=== PATIENT | male | born 1940 | race Caucasian/White ===

== ENCOUNTER 2018-02-10 18:47 | Observation (INO) | payer OTHER ==
[~2018-02-10] VITALS: Ht 170.2 cm; Wt 113.6 kg
[2018-02-10] MEDS ORDERED: KETO200ER PO (19:07)
[2018-02-10] MEDS ORDERED: HYDCHL25 PO (19:07)
[2018-02-10] MEDS ORDERED: Omeprazole20 M1 PO (19:08)
[2018-02-10] MEDS ORDERED: METO50 PO (19:08)
[2018-02-10 19:41] LABS: Hematocrit 43.1 % (37.0-53.0); Hemoglobin 14.5 g/dL (13.5-17.5); Mean Corpuscular HGB Conc 33.6 g/dL (31.5-36.5); Mean Corpuscular Volume 98 fL (80-100); Mean Platelet Volume 9.8 fL (9.1-12.4); Platelet Count 269 K/mm3 (150-400); RDW Coefficient Variation 12.6 % (11.7-14.2); RDW Standard Deviation 45.4 fL (35.1-46.3); White Blood Cell Count 8.37 K/mm3 (4.00-11.30)
[2018-02-10 19:49] LABS: International Normalized Ratio 1.04; Prothrombin Time Results 10.7 Sec (9.7-11.5)
[2018-02-10 19:54] LABS: Magnesium, Blood 2.1 mg/dL (1.6-2.4); Troponin I 0.036 ng/mL (0.000-0.040)
[2018-02-10 19:59] LABS: Anion Gap 9 mmol/L (6-16); Blood Urea Nitrogen 24 mg/dL (8-24); Bun/Creatinine Ratio 22.9 (12.0-20.0); CO2, Blood 26 mmol/L (21-32); Chloride, Blood 105 mmol/L (98-108); Creatinine, Blood 1.05 mg/dL (0.60-1.20); Glomerular Filtration Rate >60 (60-); Glucose, Blood 102 mg/dL (70-99); Potassium, Blood 3.7 mmol/L (3.5-5.5); Sodium, Blood 140 mmol/L (136-145)
[2018-02-10] MEDS ORDERED: DIPH50 (23:39)
[2018-02-11 04:08] LABS: Hematocrit 42.7 % (37.0-53.0); Hemoglobin 14.2 g/dL (13.5-17.5); Mean Corpuscular HGB 32.8 pg (26.0-34.0); Mean Corpuscular HGB Conc 33.3 g/dL (31.5-36.5); Mean Corpuscular Volume 99 fL (80-100); Mean Platelet Volume 9.7 fL (9.1-12.4); Platelet Count 247 K/mm3 (150-400); RDW Coefficient Variation 12.6 % (11.7-14.2); RDW Standard Deviation 46.1 fL (35.1-46.3); Red Blood Cell Count 4.33 M/mm3 (4.30-5.90); White Blood Cell Count 7.82 K/mm3 (4.00-11.30)
[2018-02-11 04:26] LABS: Alanine Aminotransfer (ALT/SGP 22 U/L (12-78); Albumin, Blood 3.3 g/dL (3.4-5.0); Albumin/Globulin Ratio 0.8 (0.8-1.8); Alk Phos 70 U/L (50-136); Anion Gap 9 mmol/L (6-16); Aspartate Aminotrans (AST/SGOT 20 U/L (12-37); Bilirubin, Total 0.5 mg/dL (0.1-1.0); Blood Urea Nitrogen 23 mg/dL (8-24); Bun/Creatinine Ratio 22.5 (12.0-20.0); CO2, Blood 28 mmol/L (21-32); Calcium, Blood 8.5 mg/dL (8.5-10.1); Chloride, Blood 106 mmol/L (98-108); Creatinine, Blood 1.02 mg/dL (0.60-1.20); Glomerular Filtration Rate >60 (60-); Glucose, Blood 97 mg/dL (70-99); Potassium, Blood 3.8 mmol/L (3.5-5.5); Sodium, Blood 143 mmol/L (136-145); Total Protein, Blood 7.3 g/dL (6.4-8.2)
[2018-02-11 04:28] LABS: Troponin I 0.059 ng/mL (0.000-0.040)
[2018-02-11 11:57] LABS: Troponin I 0.063 ng/mL (0.000-0.040)
[2018-02-11 18:04] LABS: Percent Saturation 31.2 % (20.0-50.0)
[2018-02-12] MEDS ORDERED: VITAMIN C500 MG PO (10:09)
[2018-02-12] MEDS ORDERED: CALCITRATE200 MG PO (10:11)
[2018-02-12] MEDS ORDERED: XARELTO20 MG PO (10:12)
== END 2018-02-12 12:43 | disposition home or self-care (01) ==
LOC: ER 18:47 → PCU 18:48
PROVIDERS: Emergency Medicine; Internal Medicine; Internal Medicine Cardiovascular Disease
DX: I48.0 Paroxysmal atrial fibrillation (principal); I10 Essential (primary) hypertension; N40.0 Benign prostatic hyperplasia without lower urinary tract symptoms; M19.90 Unspecified osteoarthritis, unspecified site; E66.9 Obesity, unspecified; Z88.8 Allergy status to other drugs, medicaments and biological substances; Z79.899 Other long term (current) drug therapy; Z88.6 Allergy status to analgesic agent; Z68.39 Body mass index [BMI] 39.0-39.9, adult
CPT/HCPCS: 36415; 71260; 80048; 80053; 82310; 82550; 82728; 83540; 83550; 83735; 83880; 84484; 85027; 85379; 85610; 85730; 93005; 93010; 93306; 96365; 96366; 96372; 96376; 99285-25; G0378; J1650; Q9967

== ENCOUNTER 2021-11-26 05:49 | Day surgery (SDC) | payer OTHER ==
[~2021-11-26] VITALS: Ht 170.2 cm; Wt 111.0 kg
[~2021-11-26 05:49] MED LIST: ACET500 PO; Amiodarone HCl200 MG PO; Aspir 8181 MG PO; CALCITRATE200 MG PO; CALCIUM CITRAT200 MG PO; CELE100 PO; Calcium Ascorb500 MG PO; Colace100 MG PO; DIPH50; FURO20 PO; GABA300 PO; HYDCHL25 PO; Isosorbide Mono30 MG PO; KETO200ER PO; KLOR-CON 1010 ME5 PO; LISI10 PO; MELO7.5 PO; METF500C PO; METO25 PO; METO25ER PO; METO50 PO; Norco 7.5-3251 EACH PO; Omeprazole20 M1 PO; TRAM50 PO; VITAMIN C500 MG PO; XARELTO15 M1 PO; XARELTO20 MG PO
[2021-11-26] MEDS ORDERED: Amiodarone HCl200 MG PO (06:34)
== END 2021-11-26 22:55 | disposition home or self-care (01) ==
LOC: MHTC 05:49
DX: I48.0 Paroxysmal atrial fibrillation (principal); I35.0 Nonrheumatic aortic (valve) stenosis; N40.0 Benign prostatic hyperplasia without lower urinary tract symptoms; I13.0 Hypertensive heart and chronic kidney disease with heart failure and stage 1 through stage 4 chronic kidney disease, or unspecified chronic kidney disease; I50.32 Chronic diastolic (congestive) heart failure; N18.9 Chronic kidney disease, unspecified; I73.9 Peripheral vascular disease, unspecified; E66.9 Obesity, unspecified; I27.20 Pulmonary hypertension, unspecified; Z87.891 Personal history of nicotine dependence; Z68.38 Body mass index [BMI] 38.0-38.9, adult; Z88.5 Allergy status to narcotic agent; Z88.8 Allergy status to other drugs, medicaments and biological substances
CPT/HCPCS: 92960; 93005; 93010; J2704; J7030

== ENCOUNTER 2021-11-28 10:53 | Inpatient (IN) | payer OTHER ==
[~2021-11-28] VITALS: Ht 170.2 cm; Wt 110.1 kg
[2021-11-28 11:38] LABS: BASOPHILS ABSOLUTE AUTO 0.08 K/mm3 (0.00-0.23); BASOPHILS PERCENT AUTO 1 % (0-2); EOSINOPHILS ABSOLUTE AUTO 0.06 K/mm3 (0.00-0.68); EOSINOPHILS PERCENT AUTO 1 % (0-6); Hematocrit 37.2 % (37.0-53.0); Hemoglobin 12.6 g/dL (13.5-17.5); IMMATURE GRAN ABSOLUTE AUTO 0.04 K/mm3 (0.00-0.10); IMMATURE GRAN PERCENT AUTO 0 % (0-1); LYMPHOCYTES ABSOLUTE AUTO 0.99 K/mm3 (0.84-5.20); LYMPHOCYTES PERCENT AUTO 9 % (21-46); MONOCYTES PERCENT AUTO 8 % (4-13); Mean Corpuscular HGB 33.6 pg (26.0-34.0); Mean Corpuscular HGB Conc 33.9 g/dL (31.5-36.5); Mean Corpuscular Volume 99 fL (80-100); Mean Platelet Volume 9.4 fL (9.1-12.4); NEUTROPHILS ABSOLUTE AUTO 9.53 K/mm3 (1.96-9.15); NEUTROPHILS PERCENT AUTO 82 % (41-73); Platelet Count 247 K/mm3 (150-400); RDW Coefficient Variation 12.9 % (11.7-14.2); RDW Standard Deviation 46.7 fL (35.1-46.3); Red Blood Cell Count 3.75 M/mm3 (4.30-5.90)
[2021-11-28 11:57] LABS: Albumin, Blood 3.2 g/dL (3.4-5.0); Albumin/Globulin Ratio 0.8 (0.8-1.8); Bilirubin, Total 1.5 mg/dL (0.1-1.0); Bun/Creatinine Ratio 18.3 (12.0-20.0); Calcium, Blood 8.7 mg/dL (8.5-10.1); Creatinine, Blood 1.2 mg/dL (0.60-1.20); Globulin, Blood 3.9 g/dL (2.2-4.0); Potassium, Blood 4.1 mmol/L (3.5-5.5); Total Protein, Blood 7.1 g/dL (6.4-8.2)
[2021-11-28] MEDS ORDERED: CALCIUM CIT 311 EAC7 PO (12:13)
[2021-11-28] MEDS ORDERED: POTA10T PO (12:13)
[2021-11-28] MEDS ORDERED: FURO20 PO (12:13)
[2021-11-28] MEDS ORDERED: ASCO500 PO (12:14)
[2021-11-28 13:54] LABS: Influenza A, PCR NEGATIVE (NEGATIVE); Influenza B, PCR NEGATIVE (NEGATIVE); Resp Syncytial Virus, PCR NEGATIVE (NEGATIVE); SARS-Cov-2 (COVID-19) PCR, MMC NEGATIVE (NEGATIVE)
--- NOTE | 2021-11-28 16:55 | NUR ---
ER ADMIT- PT ARRIVED TO ROOM 329 VIA GURNEY FROM ED, PT A SBA INTO BED. PT A/OX4. PT DENIES ANY PAIN. PT REPORTS IT FEELS LIKE SOMETHING IS SITTING ON CHEST. PT REPORTS WAS CARDIOVERTED ON FRIDAY WITH DR VILLALOBOS AND HAS BEEN SOB SINCE, IV LASIX GIVEN IN ED. LS CLEAR, ON 2L N/C. HRR. TRACE BLE EDEMA, BRIEN HOSE PLACED AND ELEVATED. SKIN C/D/I. SPOUSE AT BEDSIDE. PT ORIENTED TO ROOM AND CALL SYSTEM. CALL LIGHT IN REACH.
--- NOTE | 2021-11-28 17:41 | NUR ---
PT REPORTS HE HAS BEEN ON XARELTO 15MG FOR 4 YEARS, NOTIFIED DR DENNIS AND DOSE CHANGED FROM 20MG BACK TO HOME DOSE OF 15MG.
--- NOTE | 2021-11-29 04:27 | NUR ---
VALUE STREAM COACH SUMMARY: A&Ox4. PLEASANT AND COOPERATIVE WITH CARE. CALLS APPROPRIATELY. USES BEDSIDE URINAL APPROPRIATELY. EXPIRATORY WHEEZES IN BILAT LUNG BASES. ELEVATING BLEs AND WEARING COMPRESSION STOCKINGS. MAINTAINING SPO2 >90% 2L/min VIA NC. TELE SINUS RHYTHM @ 60bpm; BBB EXPERIENCED EARLIER IN THE SHIFT. NO CONCERNS. NO C/O CP OR DYSPNEA WITHOUT EXERTION. WILL REPORT TO ONCOMING RN.
[2021-11-29 05:25] LABS: Hemoglobin 12.2 g/dL (13.5-17.5); Mean Corpuscular HGB 33.2 pg (26.0-34.0); Mean Corpuscular Volume 101 fL (80-100); Mean Platelet Volume 9.9 fL (9.1-12.4); Platelet Count 225 K/mm3 (150-400); RDW Coefficient Variation 12.9 % (11.7-14.2); RDW Standard Deviation 47.6 fL (35.1-46.3); Red Blood Cell Count 3.68 M/mm3 (4.30-5.90); White Blood Cell Count 10.89 K/mm3 (4.00-11.30)
[2021-11-29 05:39] LABS: Bun/Creatinine Ratio 18.5 (12.0-20.0); Creatinine, Blood 1.3 mg/dL (0.60-1.20); Potassium, Blood 3.7 mmol/L (3.5-5.5)
--- NOTE | 2021-11-29 17:20 | NUR ---
SHIFT SUMMARY- PT SBA. PT REPORTS LESS CRACKLES BREATHING, EVAL NOTES CRACKLES AND LOWER BASE OF L LUNG, UPPER CLEAR. A&O X4. FAMILY AT BEDSIDE. LOWER EXTREM. EDEMA BILAT +1. PT VSS. NO DIZZINEES REPORTED. APPETITE GOOD. CALL LIGHT IN REACH.
[2021-11-30 05:09] LABS: Hematocrit 36.2 % (37.0-53.0); Hemoglobin 12.4 g/dL (13.5-17.5); Mean Corpuscular HGB 33.6 pg (26.0-34.0); Mean Corpuscular HGB Conc 34.3 g/dL (31.5-36.5); Mean Corpuscular Volume 98 fL (80-100); Mean Platelet Volume 9.7 fL (9.1-12.4); Platelet Count 222 K/mm3 (150-400); RDW Coefficient Variation 12.4 % (11.7-14.2); Red Blood Cell Count 3.69 M/mm3 (4.30-5.90); White Blood Cell Count 10.42 K/mm3 (4.00-11.30)
[2021-11-30 05:41] LABS: Albumin/Globulin Ratio 0.7 (0.8-1.8); Bilirubin, Total 1.3 mg/dL (0.1-1.0); Bun/Creatinine Ratio 21.5 (12.0-20.0); Calcium, Blood 8.1 mg/dL (8.5-10.1); Creatinine, Blood 1.3 mg/dL (0.60-1.20); Globulin, Blood 4.1 g/dL (2.2-4.0); Magnesium, Blood 2.3 mg/dL (1.6-2.4); Potassium, Blood 3.7 mmol/L (3.5-5.5); Total Protein, Blood 7.1 g/dL (6.4-8.2)
--- NOTE | 2021-11-30 05:58 | NUR ---
FIELD OPERATIONS COORDINATOR SUMMARY: A&Ox4. PLEASANT AND COOPERATIVE WITH CARE. VSS WITH SINGLE EPISODE OF DBP OF 46 CONSISTENT WITH DIASTOLIC HF Dx. SBA FOR AMBULATING AND TOILETING OR WILL USE BEDSIDE URINAL. NO C/O PAIN OR DISCOMFORT. TELE REPORT SINUS KODY AT 54bpm WITH PACs. NO ACUTE EVENTS T/O THE NIGHT. WILL REPORT TO ONCOMING RN.
[2021-11-30] MEDS ORDERED: SPIR25 PO (10:50)
--- NOTE | 2021-11-30 11:44 | NUR ---
PATIENT DECLINED TO WAIT FOR OXYGEN TO BE DELIVERED TO THE HOSPITAL PRIOR TO DISCHARGE. THE PATIENT HAS BEEN DISCHARGED HOME WITH HIS .
== END 2021-11-30 11:43 | disposition home or self-care (01) | DRG 291 ==
LOC: ER 10:53 → MEDS 10:54
PROVIDERS: Internal Medicine; Nurse Practitioner Acute Care; Physician Assistant; ADMIT Internal Medicine
DX: I13.0 Hypertensive heart and chronic kidney disease with heart failure and stage 1 through stage 4 chronic kidney disease, or unspecified chronic kidney disease (principal); I50.33 Acute on chronic diastolic (congestive) heart failure; Z20.822 Contact with and (suspected) exposure to COVID-19; I48.91 Unspecified atrial fibrillation; I35.0 Nonrheumatic aortic (valve) stenosis; G89.29 Other chronic pain; N40.0 Benign prostatic hyperplasia without lower urinary tract symptoms; N18.30 Chronic kidney disease, stage 3 unspecified; E66.9 Obesity, unspecified; E78.5 Hyperlipidemia, unspecified; K21.9 Gastro-esophageal reflux disease without esophagitis; Z96.611 Presence of right artificial shoulder joint; Z96.653 Presence of artificial knee joint, bilateral; Z68.37 Body mass index [BMI] 37.0-37.9, adult; Z90.49 Acquired absence of other specified parts of digestive tract; Z90.89 Acquired absence of other organs; Z98.890 Other specified postprocedural states; Z87.891 Personal history of nicotine dependence; Z88.6 Allergy status to analgesic agent; Z88.8 Allergy status to other drugs, medicaments and biological substances; Z79.01 Long term (current) use of anticoagulants; Z79.899 Other long term (current) drug therapy
CPT/HCPCS: 0241U; 36415; 71045; 80048; 80053; 83735; 83880; 84145; 84484; 85025; 85027; 93005; 93010; 94761; 96374; 96376; 99285-25; A9270; G0378; J1940

== ENCOUNTER 2022-01-21 10:31 | Inpatient (IN) | payer OTHER ==
[~2022-01-21] VITALS: Ht 170.2 cm; Wt 109.4 kg
[~2022-01-21 10:31] MED LIST changes: +ASCO500 PO; +CALCIUM CIT 311 EAC7 PO; +POTA10T PO; +SPIR25 PO
[2022-01-21 11:23] LABS: BASOPHILS ABSOLUTE AUTO 0.09 K/mm3 (0.00-0.23); BASOPHILS PERCENT AUTO 1 % (0-2); EOSINOPHILS ABSOLUTE AUTO 0.17 K/mm3 (0.00-0.68); EOSINOPHILS PERCENT AUTO 2 % (0-6); Hematocrit 39.5 % (37.0-53.0); Hemoglobin 13.2 g/dL (13.5-17.5); IMMATURE GRAN ABSOLUTE AUTO 0.03 K/mm3 (0.00-0.10); IMMATURE GRAN PERCENT AUTO 0 % (0-1); LYMPHOCYTES ABSOLUTE AUTO 1.64 K/mm3 (0.84-5.20); LYMPHOCYTES PERCENT AUTO 19 % (21-46); MONOCYTES PERCENT AUTO 9 % (4-13); Mean Corpuscular HGB 33.1 pg (26.0-34.0); Mean Corpuscular HGB Conc 33.4 g/dL (31.5-36.5); Mean Corpuscular Volume 99 fL (80-100); Mean Platelet Volume 9.6 fL (9.1-12.4); NEUTROPHILS ABSOLUTE AUTO 5.92 K/mm3 (1.96-9.15); NEUTROPHILS PERCENT AUTO 69 % (41-73); Platelet Count 269 K/mm3 (150-400); RDW Coefficient Variation 13.2 % (11.7-14.2); RDW Standard Deviation 48.2 fL (35.1-46.3); Red Blood Cell Count 3.99 M/mm3 (4.30-5.90); White Blood Cell Count 8.65 K/mm3 (4.00-11.30)
[2022-01-21 11:43] LABS: Albumin, Blood 3.3 g/dL (3.4-5.0); Albumin/Globulin Ratio 0.8 (0.8-1.8); Bilirubin, Total 0.6 mg/dL (0.1-1.0); Bun/Creatinine Ratio 23.4 (12.0-20.0); Calcium, Blood 8.8 mg/dL (8.5-10.1); Creatinine, Blood 1.07 mg/dL (0.60-1.20); Magnesium, Blood 2.2 mg/dL (1.6-2.4); Potassium, Blood 4.2 mmol/L (3.5-5.5); Total Protein, Blood 7.3 g/dL (6.4-8.2)
[2022-01-21] MEDS ORDERED: METO25ER PO (14:11)
[2022-01-21] MEDS ORDERED: CELE100 PO (17:21)
[2022-01-21] MEDS ORDERED: POTA10T PO (17:29)
[2022-01-21] MEDS ORDERED: ISOSORBIDE MONO30 MG PO (17:29)
[2022-01-21] MEDS ORDERED: METO25 PO (17:30)
[2022-01-21] MEDS ORDERED: TRAM50 PO (17:31)
[2022-01-21] MEDS ORDERED: ASCO500 PO (17:31)
[2022-01-21] MEDS ORDERED: CALCIUM CIT 311 EAC7 PO (17:31)
[2022-01-21] MEDS ORDERED: MELO7.5 PO (17:32)
[2022-01-21] MEDS ORDERED: Prinivil10 MG PO (17:33)
[2022-01-21] MEDS ORDERED: APAP500 MG PO (17:34)
[2022-01-21] MEDS ORDERED: Aspir 8181 MG PO (17:34)
[2022-01-21] MEDS ORDERED: Neurontin 300300 MG PO (17:34)
[2022-01-21] MEDS ORDERED: Norco 7.5-3251 EACH PO (17:34)
--- NOTE | 2022-01-21 18:50 | NUR ---
PT ADMITTED TO ICU FROM ER AT 1840. FOR AFIB RVR. PT ARRIVED AWAKE AND ALERT W/O COMPLAINTS. PT ABLE TO TRANSFER FROM [facility] TO BED, SBA. SOME SOB NOTED W EXERTION, PT STATES THIS IS NORMAL. PT DENIES C/O CHEST PAIN/PRESSURE. CARDIZEM INFUSING AT 5MG/HR. BP SLIGHLY HTN. HEART RATE 70-80'S AFIB.
--- NOTE | 2022-01-22 06:13 | NUR ---
DILT GTT TURNED OFF AT 2200. PATIENT REMAINS IN AFIB BUT RATE CONTROLLED. PATIENT REPORTS DYSPNEA ON EXERTION BUT STATES THAT THIS IS BASELINE FOR HIM. ON ROOM AIR. BP STABLE.
--- NOTE | 2022-01-22 09:49 | NUR ---
CARE OF PT ASSUMED AT 0700. PT AWAKE AND ALERT THIS AM, DENIES ALL COMPLAINTS, DENIES CHEST PAIN/PRESSURE/DIZZINESS. ABLE TO SIT AT SIDE OF BED TO EAT BREAKFAST. HEART RATE 90'S, BRIEFLY INCREASED 110-120 WITH ACTIVITY AND THEN LOWERED AGAIN TO 90, PT IN AFIB. CARDIZEM GTT REMAINS OFF.
--- NOTE | 2022-01-22 12:17 | NUR ---
DR FRANCES IN TO SEE PT. UPDATE GIVEN. ADDITIONAL DOSE OF TOPROL XL ORDERED. PT NOW MED W TELE STATUS.
--- NOTE | 2022-01-22 13:04 | NUR ---
HEART RATE BRIEFLY RAISED TO 150 AND THEN BACK DOWN TO 100-110. PT SITTING IN CHAIR WATCHING TV W , DENIED C/O SYMPTOMS ALONG WITH FAST HR.
[2022-01-22] MEDS ORDERED: FURO20 PO (13:25)
[2022-01-22] MEDS ORDERED: XARELTO20 MG PO (13:26)
--- NOTE | 2022-01-22 14:47 | NUR ---
AROUND 1400 PT HEART INCREASED WITH RATE 130-160. DR HOPSON CALLED. LOPRESSOR 5MG ORDERED AND GIVEN; BP STABLE. HEART RATE HAS SLOWED TO 120-130'S, BP 113/73. ORDERS FOR DISCHARGE HAD BEEN ENTERED, THAT IS ON HOLD FOR NOW.
--- NOTE | 2022-01-22 16:44 | NUR ---
HEART RATE SUSTAINED AT 130-140 AFTER LOPRESSOR. EKG TAKEN RATE MORE REGULAR/STEADY. SHOWS SVT; DR FRANCES CALLED AND NOTIFIED, AT BEDSIDE SHORTLY AFTER TO SEE PT. PT ASYMPTOMAIC, DR FRANCES TO PLACE NEW ORDERS.
--- NOTE | 2022-01-22 17:44 | NUR ---
AMIO STARTED AT 1MG/MIN X6HRS. PT UP IN CHAIR, FISNISHED, DINNER, DENIES COMPLAINTS, WATCHING TV. BP REMAINS STABLE.
--- NOTE | 2022-01-23 05:09 | NUR ---
Assumed care of pt at 190. A/Ox4 and cooperative with care. Denies any pain, CP/pressure. Maintains over 92% on RA, BANUELOS noted and patient states is chronic for him. LS clear on top and dim at bases. Afib at beginning of shift 105-115's but up to 140's with activity. Around 2044 patient converted to Aflutter in 90's. At 419 patient converted into sinus zackery 40's-50's, asymptomatic. Amio gtt changed to half rate this shift. Will report to blake AZEVEDO.
--- NOTE | 2022-01-23 12:11 | NUR ---
CARE NOTE CALL PLACED BY THIS RN TO NOTIFY DR. HOPSON THAT PT IS STILL HAVING PAUSES. AMIODARONE DRIP STILL HAS APPROX. 5 HOURS OF INFUSION BEFORE LOADING DOSE COMPLETE. FROM 1032 TO 1205 PT HAS HAD A TOTAL OF 5 PAUSES RANGING FROM 2.5 SECONDS TO 2.6 SECONDS PER SPEECH LANGUAGE SPECIALIST. CALL WAS PLACED TO DR. HOPSON APPROX. 1208. BP STABLE, HR RANGING FROM 55-60'S. WILL CONTINUE TO MONITOR. PT NOW IN CHAIR EATING LUNCH. IS AT BEDSIDE.
--- NOTE | 2022-01-23 13:50 | NUR ---
CARE NOTE CALL PLACED TO DR. HOPSON TO NOTIFY REGARDING 3.5 SEC PAUSE THAT OCCURRED AT APPROX. 1335. PT IS ASYMPTOMATIC, BP AND HR STABLE. WILL CONTINUE TO MONITOR. PT NOW IN CHAIR, AT BEDSIDE.
--- NOTE | 2022-01-23 15:06 | NUR ---
CARE NOTE AMIODARONE DRIP DISCONTINUED AT 1505 PER EMAR ORDERS.
--- NOTE | 2022-01-23 17:55 | NUR ---
SHIFT SUMMARY PT IS ALERT AND ORIENTED X 4, HE IS PLEASANT AND COOPERATIVE W/ CARE AND ABLE TO MAKE HIS NEEDS KNOWN. BP STABLE, SPO2 MAINTAINED >95% VIA ROOM AIR. HR HAS BEEN SR/SB 53-60'S PER TELE MONITORING. SEE PREVIOUS NOTE REGARDING PAUSES, MADE AWARE OF PAUSES. AMIODARONE WAS D/C'D PER EMAR ORDERS DUE TO PAUSES. PT HAS CONTINUED TO DENY FEELINGS OF CHEST PAIN/PRESSURE, HE HAS DENIED FEELING LIGHTHEADED/DIZZY. HE REPORTED FEELING SOB WHICH IS HIS BASELINE. NO COUGH NOTED, NO NAUSEA/ABD PAIN. HE HAS BEEN IN RECLINER CHAIR FOR MAJORITY OF SHIFT AND HIS HAS BEEN AT BEDSIDE. HR CONTINUES TO REMAIN SB 55 AFTER AMIODARONE D/C'D AND PER FORMS EXAMINER, PT HAS ONLY HAD 1 EPISODE OF PAUSE SINCE AMIODARONE DRIP STOPPED/DC'D. HE HAS AMBULATED A SBA TO BATHROOM. PT NOW VISITING W/ FAMILY FINISHING DINNER, WILL CONTINUE TO MONITOR UNTIL REPORT GIVEN. CALL LIGHT IN REACH.
--- NOTE | 2022-01-24 05:39 | NUR ---
SHIFT SUMMARY PT IS A&OX4, CALLS APPROPRIATELY, MOVES IND IN BED, AND HAS BEEN SLEEPING T/O THE NIGHT. HE DENIES SOB BUT STATED HE WAS HAVING 1/10 CHRONIC ANGINA. AN HOUR LATER HE WAS REASSESSED AND HE STATED IT WENT AWAY. HE HAS BEEN SB 50'S-60'S T/O THE NIGHT, SP02 >90% RA, AND HAS NO OTHER COMPLAINTS. BED IN LOW AND CALL LIGHT IN REACH. WILL CONTINUE TO MONITOR UNTIL SHIFT REPORT IS GIVEN TO THE ONCOMING SHIFT RN. SEE NOTES FOR ANY UPDATES.
--- NOTE | 2022-01-24 10:43 | NUR ---
DISCHARGE SUMMARY PT WAS TRANSPORTED BY WHEELCHAIR TO PERSONAL VEHICLE. ALL PERSONAL BELONGINGS AND DISCHARGE INSTRUCTIONS WERE IN THE PT'S POSSESSION AT THE TIME OF TRANSPORT. ALL QUESTIONS AND CONCERNS WERE ADDRESSED PRIOR TO TRANSPORT. PT VERBALIZED AN UNDERSTANDING OF DISCHARGE INSTRUCTIONS.
== END 2022-01-24 10:34 | disposition home or self-care (01) | DRG 309 ==
LOC: ER 10:31 → PCU 12:35 → ICUW 12:35 → ERHOLD 12:35 → ICUW 18:47 → PCU 01-22 17:58
PROVIDERS: Student in an Organized Health Care Education/Training Program; ADMIT Internal Medicine
DX: I48.91 Unspecified atrial fibrillation (principal); I13.0 Hypertensive heart and chronic kidney disease with heart failure and stage 1 through stage 4 chronic kidney disease, or unspecified chronic kidney disease; I50.32 Chronic diastolic (congestive) heart failure; I35.0 Nonrheumatic aortic (valve) stenosis; N40.0 Benign prostatic hyperplasia without lower urinary tract symptoms; E78.5 Hyperlipidemia, unspecified; K21.9 Gastro-esophageal reflux disease without esophagitis; E66.01 Morbid (severe) obesity due to excess calories; N52.9 Male erectile dysfunction, unspecified; M19.90 Unspecified osteoarthritis, unspecified site; I47.1 Supraventricular tachycardia; N18.9 Chronic kidney disease, unspecified; R00.1 Bradycardia, unspecified; Z96.611 Presence of right artificial shoulder joint; Z96.653 Presence of artificial knee joint, bilateral; Z88.8 Allergy status to other drugs, medicaments and biological substances; Z88.5 Allergy status to narcotic agent; Z90.49 Acquired absence of other specified parts of digestive tract; Z98.890 Other specified postprocedural states; Z88.1 Allergy status to other antibiotic agents; Z79.899 Other long term (current) drug therapy; Z79.01 Long term (current) use of anticoagulants; Z79.891 Long term (current) use of opiate analgesic; Z68.37 Body mass index [BMI] 37.0-37.9, adult
CPT/HCPCS: 71045; 80053; 83735; 83880; 85025; 93005; 93010; 96376; A9270; G0378; J0282; J1200; J1940; J7060

== ENCOUNTER 2022-03-11 05:51 | Day surgery (SDC) | payer OTHER ==
[~2022-03-11] VITALS: Ht 170.2 cm; Wt 110.5 kg
[~2022-03-11 05:51] MED LIST changes: +APAP500 MG PO; +ISOSORBIDE MONO30 MG PO; +Neurontin 300300 MG PO; +Prinivil10 MG PO
--- NOTE | 2022-03-11 12:33 | NUR ---
admit note Pt [facility] approx 0930. Pt alert, oriented, accompanied by . Sp02>90% on ra. Telemetry showed nsr/paced, hr 60's. vss. Pt post pacer, opsite, dressing in tact, slight yellow discharge on dressing. sling implemented to l arm. Pt educated on not raising arm, no lifting, pulling, etc. Chest xray in room per orders. Pt currently eating lunch in room. Oriented to room, call light. Call light in reach.
--- NOTE | 2022-03-11 17:45 | NUR ---
SHIFT SUMMARY NO ACUTE CHANGES SINCE LAST NOTE. PT A&OX4, VSS. PACEMAKER DRESSING INTACT, MODERATE YELLOW DISCHARGE ON DRESSING. ARM SLING IN PLACE. PT ALBE TO EAT ALL MEALS, USE URINAL INDEPENDENTLY. ABX GIVEN PER EMAR. IN ROOM MOST OF DAY. CALL LIGHT IN REACH.
--- NOTE | 2022-03-12 06:38 | NUR ---
PT TO IMAGING FOR XRAY.
--- NOTE | 2022-03-12 06:39 | NUR ---
SHIFT SUMMARY PT REMAINS A&O X4, VSS, ON RA, 1 ASSIST TO TE BATHROOM, PT HAS KEPT HIS LEFT ARM ELEVATED & IN THE SLING, DRSG REMAINS INTACT, SMALL AMOUNT OF RED DRAINAGE NOTED AT APPROX 2240, NO GROWTH NOTED SINCE. 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 HR PACED @60 BPM. TOLERATING PO INTAKE, VOIDING WNL. CALLS FOR ASSISTANCE PRN, CALL LIGHT IN REACH.
[2022-03-12] MEDS ORDERED: METO25 PO (13:37)
[2022-03-12] MEDS ORDERED: CEPH500 PO (13:39)
--- NOTE | 2022-03-12 14:29 | NUR ---
DISCHARGE SUMMARY MD VILLALOBOS IN ROOM FOR DRESSING CHANGE AND ASSESSMENT. POST PACER INSTRUCTIONS EDUCATED TO PT AND PT'S . PT A&OX4, VSS. NEW MEDICATIONS FAXED TO [facility]. DICHARGE MEDICATIONS AND EDUCATION DISCUSSED W/ PT AND PT'S . IV REMOVED. L ARM IN SLING. PT WHEELED TO ER EXIT, DRIVING HOME IN PRIVATE VEHICLE.
== END 2022-03-12 14:26 | disposition home or self-care (01) ==
LOC: MHTC 05:51 → PCU 09:08 → MHTC 03-12 14:26
DX: I48.0 Paroxysmal atrial fibrillation (principal); I51.89 Other ill-defined heart diseases; I10 Essential (primary) hypertension; I35.0 Nonrheumatic aortic (valve) stenosis; I48.91 Unspecified atrial fibrillation; R06.09 Other forms of dyspnea
CPT/HCPCS: 33208; 71045; 71046; 76937; 99152; 99153; A9270; C1781; C1785; C1894; C1898; J0690; J1644; J2250; J3010; J7030; J7040

== ENCOUNTER 2023-02-19 06:29 | Day surgery (SDC) | payer OTHER ==
[2023-02-19] VITALS (7 sets, daily range): BP systolic 108–147; BP diastolic 57–101
[~2023-02-19] VITALS: Ht 170.2 cm; Wt 113.0 kg
[~2023-02-19 06:29] MED LIST changes: +CEPH500 PO; +PACERONE400 M3 PO
--- NOTE | 2023-02-19 10:30 | NUR ---
10CC AIR REMOVED FROM R WRIST TR BAND. -BLEEDING OR SWELLING.
--- NOTE | 2023-02-19 11:30 | NUR ---
PT AND VERBALIZED UNDERSTANDING OF WRITTEN AND VERBAL D/C INST. IV REMOVED. R WRIST TR BAND REMOVED AND CLOTH DOT DRSG PLACED. R WRIST SPLINT REAPPLIED. PT TAKEN OUT OF THE HRT CENTER VIA W/C.
== END 2023-02-19 11:30 | disposition home or self-care (01) ==
LOC: MHTC 06:29
DX: I35.0 Nonrheumatic aortic (valve) stenosis (principal); E66.9 Obesity, unspecified; Z95.0 Presence of cardiac pacemaker; I50.32 Chronic diastolic (congestive) heart failure; I11.0 Hypertensive heart disease with heart failure
CPT/HCPCS: 76937; 93454; 99152; 99153; A9270; C1769; C1887; C1894; J1644; J2250; J3010; J7030; J7050; Q9967